=== PATIENT | male | born 1960 | race Two or more races ===

== ENCOUNTER 2025-02-18 13:39 | Emergency (ER) | payer MEDICAID, OTHER ==
[~2025-02-18] VITALS: Ht 172.7 cm; Wt 58.8 kg
[2025-02-18 13:41] VITALS: BP 168/95; PULSE 77; RESP 16; TEMP 98.5; O2SAT 96
[2025-02-18] MEDS ORDERED: GABA-1308 PO (15:14)
--- NOTE | 2025-02-18 15:14 | ED.PDOC ---
Musculoskeletal HPI Comments The patient presented with tingling and numbness in the foot and leg, with concerns about potential neuropathy. The patient reported that the leg had been asleep for approximately three days, beginning on Tuesday when they experienced flu-like symptoms. On Tuesday, the patient noticed a lack of sensation primarily in the foot. The numbness was described as causing difficulty in feeling the foot, with tingling persisting despite wearing a shoe. Relief was noted when placing the foot on a cold floor, although this led to a throbbing sensation. The patient also mentioned a previous diagnosis of neuropathy from a physician in [place]. No new medications had been started for this condition. The patient did not report having significant swelling in the foot. Denies any symptoms at this time. Chief Complaint: Lower Extremity Time Seen by MD: 13:50 Reviewed Notes: Nurses Notes, Medications, Allergies Allergies: Coded Allergies: Penicillins (Verified Allergy, Unknown, 02/18/25) Home Meds Active Scripts Gabapentin (Gabapentin) 100 Mg Cap, 1 CAP PO TID for 30 Days, #90 CAP 0 Refills Prov:SHAYFERNANDO NP 02/18/25 Information Source: Patient Mode of Arrival: Ambulatory Location: Bilateral Extremity Location: Ankle, Foot Timing: Days Prehospital treatment: None Severity: Moderate Able to Move Extremity: Yes Bear Weight: Limited Pain: Moderate Hand Dominance: Right Mechanism: Spontaneous Circumstances: Spontaneous Onset of Symptoms: Spontaneous Symptoms: Pain (pain And tingling sensation) DVT Risk Factors: NONE Associated signs and symptoms: Ankle pain, Foot pain Past Medical History PAST MEDICAL HISTORY: Denies Surgical History: Denies all surgeries Family History Family History: Reviewed,noncontributory to illness, Unknown Social History Smoker: Non-Smoker Alcohol: Denies ETOH Use Drugs: Denies Drug Use Lives In: Home Constitutional: denies: chills, diaphoresis, fatigue, fever, malaise, sweats, weakness, others EENTM: denies: blurred vision, double vision, ear bleeding, ear discharge, ear drainage, ear pain, ear ringing, eye pain, eye redness, hearing loss, mouth pain, mouth swelling, nasal discharge, nose bleeding, nose congestion, nose pain, photophobia, tearing, throat pain, throat swelling, voice changes, others Respiratory: denies: cough, hemoptysis, orthopnea, SOB at rest, shortness of breath, SOB with excertion, stridor, wheezing, others Cardiovascular: denies: chest pain, dizzy spells, diaphoresis, Dyspnea on exertion, edema, irregular heart beat, left arm pain, lightheadedness, palpitations, PND, syncope, others Gastrointestinal: denies: abdomen distended, abdominal pain, blood streaked bowels, constipated, diarrhea, dysphagia, difficulty swallowing, hematemesis, melena, nausea, poor appetite, poor fluid intake, rectal bleeding, rectal pain, vomiting, others Genitourinary: denies: burning, dysuria, flank pain, frequency, hematuria, incontinence, penile discharge, penile sore, pain, testicle pain, testicle swel ling, urgency, others Neurological: reports: numbness (Bilateral feet and ankle); denies: dizziness, fainting, headache, left sided numbness, left sided weakness, paresthesia, pre- existing deficit, right sided numbness, right sided weakness, seizure, speech problems, tingling, tremors, weakness, others Musculoskeletal: denies: back pain, gout, joint pain, joint swelling, muscle pain, muscle stiffness, neck pain, others Integumetry: denies: bruises, change in color, change in hair/nails, dryness, laceration, lesions, lumps, rash, wounds, others Allergic/Immunocompromised: denies: Difficulty Healing, Frequent Infections, Hives, Itching, others Hematologic/Lymphatic: denies: anemia, blood clots, easy bleeding, easy bruising, swollen glands, others Endocrine: denies: excessive hunger, excessive sweating, excessive thirst, excessive urination, flushing, intolerance to cold, intolerance to heat, unexplained weight gain, unexplained weight loss, others Psychiatric: denies: anxiety, bipolar disorder, depression, hopeless, panic disorder, schizophrenia, sleepless, suicidal, others All Other Systems: Reviewed and Negative Physical Exam General Appearance: No Apparent Distress, Normal HEENT: Normal ENT Inspection, Pharynx Normal, TMs Normal Neck: Full Range of Motion, Non-Tender, Normal, Normal Inspection Respiratory: Chest Non-Tender, Lungs Clear, No Accessory Muscle Use, No Respiratory Distress, Normal Breath Sounds Cardiovascular: No Edema, No JVD, No Murmur, No Gallop, Normal Peripheral Pulses, Regular Rate/Rhythm Breast Exam: Deferred Gastrointestinal: No Organomegaly, Non Tender, No Pulsatile Mass, Normal Bowel Sounds, Soft Genitalia: Deferred Pelvic: Deferred Rectal: Deferred Extremities: No calf tenderness, Normal capillary refill, Normal inspection, Normal range of motion, Non-tender, No pedal edema Musculoskeletal : Apperance: Normal Neurologic: Alert, talent acquisition coordinator II-XII nml as Tested, No Motor Deficits, Normal Affect, Normal Mood, No Sensory Deficits Cerebellar Function: Normal Reflexes: Normal Skin: Dry, Normal Color, Warm Lymphatic: No Adenopathy Was a procedure done? Was a procedure done?: No X-Ray, Labs, Meds, VS Vital Signs Date Time Temp Pulse Resp B/P (MAP) Pulse Ox O2 Delivery O2 Flow Rate FiO2 02/18/25 13:41 98.5 77 16 168/95 96 98.5 X-Ray, Labs, Meds, VS Comment Patient arrives alert and oriented, ABC's intact, afebrile, vital signs stable, saturating well in room air ASSESSMENT: The primary concern appears to be peripheral neuropathy, as sug gested by the symptoms of tingling and numbness in the foot, which are common indicators. The recent onset of these symptoms, coupled with the patient's report of a previous diagnosis of neuropathy, supports this assessment. It is also important to rule out other potential causes of these symptoms, such as vascular issues or more severe neurological conditions, though these were not explicitly detailed in the transcript. PLAN: - Treatment: The patient was prescribed gabapentin, starting with a low dose of one tablet three times a day for two days. The dose was to be increased to two tablets three times a day if no improvement was observed. - Tests: Not specified in the transcript. - Patient Education: I discussed the nature of neuropathy with the patient, explaining that it is usually a chronic condition. The patient was informed that while the medication may not restore sensation, it should help reduce the tingling sensation. - Follow-Up: The patient was advised to follow up with their primary care physi noble within six weeks. - Disposition: The patient was instructed to obtain the prescribed medication from [facility] on [address] and monitor for changes in symptoms. Additional MDM Review of External, Non-ED records: External records reviewed. Discussion with independent historian (EMS, family) history obtained from the patient/parents (if applicable) at bedside Chronic conditions affecting care: None Social determinants of health affecting care: None Consideration of admission (observation or admission): I considered escalation of care to admission for this patient, however given the reassuring workup, the patient is safe for outpatient management. Discussion with the Radiology: No Tests considered but not performed: Prescription medication considered but not given: 12 lead EKG interpretation: Time of 1ST Reevaluation: 14:20 Reevaluation 1ST: Unchanged Patient Education/Counseling: Diagnosis, Treatment, Prognosis Family Education/Counseling: No Family Present Departure 1 Departure Time of Disposition: 15:12 Impression: Primary Impression: Neuropathy Disposition: 01 HOME / SELF CARE / HOMELESS Condition: Stable e-Prescriptions Gabapentin (Gabapentin) 100 Mg Cap 1 CAP PO TID for 30 Days, #90 CAP 0 Refills Prov: FERNANDO DAY NP 02/18/25 Discharged With: Self Critical Care Note Critical Care Time?: No Stability Stability form required: No I personally scribed for FERNANDO DAY NP ([email or web address]) on 02/18/25 at 15:26. Electronically submitted by Adin Mccabe ([email or web address]). FERNANDO DAY PRINT OPERATOR Feb 18, 2025 15:14
== END 2025-02-18 15:28 | disposition home or self-care (01) ==
LOC: ER 13:39
DX: G62.9 Polyneuropathy, unspecified (principal); Z79.899 Other long term (current) drug therapy; Z88.0 Allergy status to penicillin